=== PATIENT | male | born 1975 | race Caucasian/White ===

== ENCOUNTER 2018-01-13 08:30 | Day surgery (SDC) | payer OTHER ==
[~2018-01-13] VITALS: Ht 167.6 cm; Wt 60.3 kg
[2018-01-13] MEDS ORDERED: fentaNYL 0.05 MG/ML VIAL ONE (11:13)
[2018-01-13] MEDS ORDERED: MIDAZOLAM 2 MG/2 ML VIAL ONE ×2 (11:13→11:54)
[2018-01-13] MEDS ORDERED: MIDAZOLAM 2 MG/2 ML VIAL IVP ONE (14:25)
[2018-01-13] MEDS ORDERED: fentaNYL 0.05 MG/ML VIAL IVP ONE (14:25)
== END 2018-01-13 13:25 | disposition home or self-care (01) ==
LOC: MDS 08:30 → MMU 08:31 → MDS 13:25
PROVIDERS: ATTEND Internal Medicine Gastroenterology
DX: K22.0 Achalasia of cardia (principal); K21.9 Gastro-esophageal reflux disease without esophagitis; Z79.899 Other long term (current) drug therapy
CPT/HCPCS: 43249; C1727; J2250; J3010; J7030